=== PATIENT | female | born 1940 | race Caucasian/White ===

== ENCOUNTER 2018-10-13 09:00 | Day surgery (SDC) | payer OTHER, MEDICARE ==
[2018-10-12 10:35] VITALS: BMI 18.3
[2018-10-13 11:25] VITALS: TEMP 97.8
[2018-10-13 12:33] VITALS: BP 156/59; PULSE 61
--- NOTE | 2018-10-14 12:34 | PATH ---
Surgical Pathology Report Patient Name: MOODY LIZ [facility]. Rec. #: [id number] /Age/Gender: 1940 (Age: 78) / F Account: [id number] Location: [facility]-ENDOSCOPY Taken: 10/13/2018 Received: 10/13/2018 Reported: 10/14/2018 Physicians: Mansoor Tolentino M.D. Specimen(s) Received A: SECOND PORTION DUODENUM AND BULB B: ANTRUM C: ANTRAL ULCER D: GE JUNCTION Clinical History Iron deficiency anemia Postoperative diagnosis: Hiatal hernia, atrophic gastritis, gastric ulcers, hemorrhoids, diverticulosis Final Diagnosis A. DUODENUM, SECOND PORTION AND BULB, BIOPSY: DUODENAL MUCOSA WITHOUT SIGNIFICANT PATHOLOGIC FINDINGS. B. STOMACH, ANTRUM, BIOPSY: GASTRIC ANTRAL MUCOSA WITH SEVERE CHRONIC ACTIVE GASTRITIS. IMMUNOHISTOCHEMICAL STAIN FOR H. PYLORI IS POSITIVE (MANY). C. STOMACH, ANTRAL ULCER, BIOPSY: GASTRIC ANTRAL MUCOSA WITH SEVERE CHRONIC ACTIVE GASTRITIS AND ASSOCIATED ULCERATION. IMMUNOHISTOCHEMICAL STAIN FOR H. PYLORI IS POSITIVE (MANY). D. GE JUNCTION, BIOPSY: SQUAMOCOLUMNAR MUCOSA WITH MILD ACUTE AND CHRONIC INFLAMMATION AND CHANGES OF MILD REFLUX ESOPHAGITIS. NO INTESTINAL METAPLASIA OR DYSPLASIA IDENTIFIED. Electronically Signed Madonna Moeller M.D. Gross Description A. Received in formalin, labeled "second portion and bulb of duodenum" are 5 nicolas, irregular portions of soft tissue ranging from 0.3-0.4 cm. in greatest dimension. The specimens are submitted in toto in one cassette. B. Received in formalin, labeled "antrum biopsy" are 5 nicolas, irregular portions of soft tissue ranging from 0.2-0.4 cm. in greatest dimension. The specimens are submitted in toto in one cassette. C. Received in formalin, labeled "antral ulcer biopsy" is a nicolas, irregular portion of soft tissue measuring 0.4 cm. in greatest dimension. The specimen is submitted in toto in one cassette. D. Received in formalin, labeled "GE junction biopsy" are 2 nicolas, irregular portions of soft tissue measuring 0.1 and 0.3 cm. in greatest dimension. The specimens are submitted in toto in one cassette. DL/10/13/2018 saudi10/13/2018
== END 2018-10-13 12:35 | disposition home or self-care (01) ==
LOC: JASU-ENDO 09:00
PROVIDERS: ATTEND Internal Medicine Gastroenterology
PROC: 0DB68ZX Excision of Stomach, Via Natural or Artificial Opening Endoscopic, Diagnostic (ICD-10-PCS; 2018-10-13)
PROC: 0DB48ZX Excision of Esophagogastric Junction, Via Natural or Artificial Opening Endoscopic, Diagnostic (ICD-10-PCS; 2018-10-13)
PROC: 0DB98ZX Excision of Duodenum, Via Natural or Artificial Opening Endoscopic, Diagnostic (ICD-10-PCS; principal; 2018-10-13 09:45)
DX: D50.9 Iron deficiency anemia, unspecified (principal); K29.50 Unspecified chronic gastritis without bleeding; K44.9 Diaphragmatic hernia without obstruction or gangrene; B96.81 Helicobacter pylori [H. pylori] as the cause of diseases classified elsewhere; K25.9 Gastric ulcer, unspecified as acute or chronic, without hemorrhage or perforation; K21.0 Gastro-esophageal reflux disease with esophagitis; I10 Essential (primary) hypertension; E78.5 Hyperlipidemia, unspecified; M81.0 Age-related osteoporosis without current pathological fracture; K22.70 Barrett's esophagus without dysplasia
CPT/HCPCS: 88305-TC; 88342-TC

== ENCOUNTER 2019-08-09 09:03 | Day surgery (SDC) | payer OTHER, MEDICARE ==
[2019-08-04 16:45] VITALS: BMI 20.2
[2019-08-09] MEDS ORDERED: LIDOCAINE HCL 2% 100 MG/5 ML DISP.SYRIN ONE (09:59)
[2019-08-09 10:18] VITALS: TEMP 97.6
[2019-08-09 11:16] VITALS: BP 145/76; PULSE 65
== END 2019-08-09 11:16 | disposition home or self-care (01) ==
LOC: JASU-ENDO 09:03
PROVIDERS: ATTEND Internal Medicine Gastroenterology
PROC: 06LY4CC Occlusion of Hemorrhoidal Plexus with Extraluminal Device, Percutaneous Endoscopic Approach (ICD-10-PCS; principal; 2019-08-09 10:00)
DX: K64.8 Other hemorrhoids (principal)

== ENCOUNTER 2021-08-12 08:20 | Inpatient (IN) | payer OTHER, MEDICARE ==
[2021-08-12] MEDS ORDERED: LIDOCAINE 5% TOPICAL PATCH TP ONE (08:41)
[2021-08-12] MEDS ORDERED: ACETAMINOPHEN 1000 MG/100 ML BAG IVPB ONE (08:41)
[2021-08-12] MEDS ORDERED: LIDOCAINE 5% TOPICAL PATCH ONE (09:15)
[2021-08-12] MEDS ORDERED: ACETAMINOPHEN INJECTION 100 ML IVPB ONE ×2 (09:15→18:25)
[2021-08-12 10:08] LABS: BASO % 0.6 % (0-2.0); EOS % 0.8 % (0-4.5); HEMATOCRIT 35.5 % (32.4-45.2); HEMOGLOBIN 11.8 GM/dL (10.7-15.3); LYMPH % 16.2 % (8-40); MCH 31.9 pg (25.7-33.7); MCHC 33.3 g/dl (32.0-36.0); MEAN CELL VOLUME 95.6 fl (80-96); MEAN PLT VOLUME 8.3 fl (7.5-11.1); MONO % 7.3 % (3.8-10.2); NEUT % 75.1 % (42.8-82.8); PLATELET COUNT 244 10^3/uL (134-434); RBC 3.71 M/mm3 (3.60-5.2); RDW 13.5 % (11.6-15.6); WHITE BLOOD COUNT 5.6 K/mm3 (4.0-10.0)
[2021-08-12 10:25] LABS: ALBUMIN 3.7 g/dl (3.4-5.0)
[2021-08-12] MEDS ORDERED: morphine CARPU-JECT 2 MG/1 ML DISP.SYRIN IVPUSH ONE ×2 (10:25→16:48)
[2021-08-12 10:28] LABS: CREATININE 0.5 mg/dL (0.55-1.3)
[2021-08-12 10:30] LABS: BILIRUBIN,TOTAL 1.1 mg/dL (0.2-1)
[2021-08-12 11:10] LABS: EPI CELLS 1 /uL (0-25.1); HYALINE CASTS 17 /uL (0-3.1); PH,URINE 5.5 (5.0-8.0); URINE APPEARANCE CLOUDY; URINE BACTERIA >9,000 /uL (0-1359); URINE BILIRUBIN NEGATIVE (NEGATIVE); URINE COLOR YELLOW; URINE GLUCOSE (UA) NEGATIVE (NEGATIVE); URINE KETONE 1+ (NEGATIVE); URINE LEUK ESTERASE 2+ (NEGATIVE); URINE NITRITE NEGATIVE (NEGATIVE); URINE PROTEIN 1+ (NEGATIVE); URINE RBC 7 /uL (0-23.9); URINE UROBILINOGEN 0.2 mg/dL (0.2-1.0); URINE WBC 501 /uL (0-25.8)
[2021-08-12] MEDS ORDERED: CEFTRIAXONE 1,000 MG in DEXTROSE 5%-WATER - 50 ML IVPB ONE (11:13)
[2021-08-12] MEDS ORDERED: CEFTRIAXONE 1 GM/50 ML BAG ONE (11:36)
[2021-08-12] MEDS ORDERED: PIPERACILLIN/TAZOB 4.5 GM 4.5 GM in DEXTROSE 5%-WATER 100 ML IVPB ONE (16:09)
[2021-08-12] MEDS ORDERED: PIPERACILLIN/TAZOB 4.5 GM 4.5 GM/100 ML BAG IVPB ONE (16:47)
[2021-08-12] MEDS ORDERED: SODIUM CHLORIDE 1,000 ML IV SCH (17:00)
[2021-08-12] MEDS ORDERED: ENOXAPARIN NA (PORCINE) 40 MG/0.4 ML DISP.SYRIN SQ ONE (17:24)
[2021-08-12] MEDS: ENOXAPARIN NA (PORCINE) 40 MG/0.4 ML DISP.SYRIN SQ SCH (17:30)
[2021-08-12] MEDS: ACETAMINOPHEN 1000 MG/100 ML BAG IVPB SCH ×2 (18:30→23:46)
[2021-08-12] MEDS ORDERED: LIDOCAINE PATCH REMOVAL MC ONE (22:00)
[2021-08-13] MEDS: ACETAMINOPHEN 1000 MG/100 ML BAG IVPB SCH ×3 (06:07→16:01)
[2021-08-13 08:29] LABS: BASO % 0.8 % (0-2.0); EOS % 3.3 % (0-4.5); HEMATOCRIT 32.8 % (32.4-45.2); HEMOGLOBIN 11.2 GM/dL (10.7-15.3); LYMPH % 22.3 % (8-40); MCH 32.2 pg (25.7-33.7); MEAN CELL VOLUME 94.6 fl (80-96); MEAN PLT VOLUME 8.2 fl (7.5-11.1); NEUT % 66.6 % (42.8-82.8); PLATELET COUNT 234 10^3/uL (134-434); RBC 3.47 M/mm3 (3.60-5.2); RDW 13.1 % (11.6-15.6); WHITE BLOOD COUNT 4.9 K/mm3 (4.0-10.0)
[2021-08-13 08:57] LABS: CALCIUM 8.7 mg/dL (8.5-10.1)
[2021-08-13 08:58] LABS: ALBUMIN 3.3 g/dl (3.4-5.0); BLOOD UREA NITROGEN 22.2 mg/dL (7-18)
[2021-08-13 09:01] LABS: CREATININE 0.5 mg/dL (0.55-1.3); PHOSPHOROUS 2.8 mg/dL (2.5-4.9)
[2021-08-13 09:03] LABS: BILIRUBIN,TOTAL 0.9 mg/dL (0.2-1); TOT PROT 6.3 g/dl (6.4-8.2)
[2021-08-13] MEDS ORDERED: POTASSIUM CHLORIDE TABS 20 MEQ TABLET.ER (FP) PO ONE (09:30)
[2021-08-13] MEDS ORDERED: DEXTROSE 5%-WATER - 50 ML IVPB ONE ×2 (09:32→17:09)
[2021-08-13] MEDS ORDERED: PIPERACILLIN/TAZOBACTAM 2.25 GM VIAL IVPB ONE (09:32)
[2021-08-13] MEDS: ENOXAPARIN NA (PORCINE) 40 MG/0.4 ML DISP.SYRIN SQ SCH (09:36)
[2021-08-13] MEDS: LIDOCAINE 5% TOPICAL PATCH TP SCH (09:54)
[2021-08-13] MEDS: POLYETHYLENE GLYCOL (HEALTHYLAX) 3350 17 GM PACKET PO SCH (09:55)
[2021-08-13] MEDS ORDERED: PIPERACILLIN/TAZOB 2.25 GM 2.25 GM in DEXTROSE 5%-WATER - 50 ML IVPB ONE (10:00)
[2021-08-13] MEDS: PHENAZOPYRIDINE HCL 100 MG TABLET (FP) PO SCH ×2 (13:29→17:30)
[2021-08-13] MEDS ORDERED: traMADol HCL 50 MG TABLET PO PRN (16:37)
[2021-08-13] MEDS ORDERED: PIPERACILLIN/TAZOBACTAM 3.375 GM VIAL IVPB ONE (17:09)
[2021-08-13] MEDS: PIPERACILLIN/TAZOB 3.375 GM 3.375 GM in DEXTROSE 5%-WATER - 50 ML IVPB SCH (17:23)
[2021-08-13] MEDS: AMINO ACIDS/PROTEIN HYDROLYS 30 ML LIQUID.PKT PO SCH (17:23)
[2021-08-13] MEDS: LIDOCAINE PATCH REMOVAL MC SCH (22:10)
[2021-08-14] MEDS ORDERED: DEXTROSE 5%-WATER - 50 ML IVPB ONE ×2 (01:53→09:05)
[2021-08-14] MEDS ORDERED: PIPERACILLIN/TAZOBACTAM 3.375 GM VIAL IVPB ONE ×2 (01:53→09:05)
[2021-08-14] MEDS: PIPERACILLIN/TAZOB 3.375 GM 3.375 GM in DEXTROSE 5%-WATER - 50 ML IVPB SCH ×2 (02:35→09:13)
[2021-08-14 09:12] LABS: BASO % 0.6 % (0-2.0); EOS % 1.9 % (0-4.5); HEMATOCRIT 34.5 % (32.4-45.2); HEMOGLOBIN 11.7 GM/dL (10.7-15.3); LYMPH % 17.7 % (8-40); MCH 31.7 pg (25.7-33.7); MCHC 33.8 g/dl (32.0-36.0); MEAN CELL VOLUME 93.7 fl (80-96); MEAN PLT VOLUME 7.8 fl (7.5-11.1); MONO % 7.3 % (3.8-10.2); NEUT % 72.5 % (42.8-82.8); PLATELET COUNT 274 10^3/uL (134-434); RBC 3.69 M/mm3 (3.60-5.2); RDW 13.3 % (11.6-15.6); WHITE BLOOD COUNT 5.3 K/mm3 (4.0-10.0)
[2021-08-14] MEDS: LIDOCAINE 5% TOPICAL PATCH TP SCH (09:13)
[2021-08-14] MEDS: POLYETHYLENE GLYCOL (HEALTHYLAX) 3350 17 GM PACKET PO SCH (09:13)
[2021-08-14] MEDS: AMINO ACIDS/PROTEIN HYDROLYS 30 ML LIQUID.PKT PO SCH ×2 (09:13→18:10)
[2021-08-14] MEDS: LISINOPRIL 10 MG TABLET PO SCH (09:14)
[2021-08-14] MEDS: metoPROLOL SUCCINATE 25 MG TAB.SR.24H (FP) PO SCH (09:14)
[2021-08-14] MEDS: ENOXAPARIN NA (PORCINE) 40 MG/0.4 ML DISP.SYRIN SQ SCH (09:14)
[2021-08-14] MEDS: PHENAZOPYRIDINE HCL 100 MG TABLET (FP) PO SCH ×3 (09:14→18:11)
[2021-08-14 09:35] LABS: ALBUMIN 3.4 g/dl (3.4-5.0); BLOOD UREA NITROGEN 23.3 mg/dL (7-18); CALCIUM 9.1 mg/dL (8.5-10.1); MAGNESIUM 2.1 mg/dL (1.8-2.4)
[2021-08-14 09:38] LABS: CREATININE 0.5 mg/dL (0.55-1.3)
[2021-08-14 09:40] LABS: BILIRUBIN,TOTAL 1.1 mg/dL (0.2-1); TOT PROT 6.7 g/dl (6.4-8.2)
[2021-08-14] MEDS: ALPRAZolam 1 MG TABLET PO PRN (16:09)
[2021-08-14 16:10] VITALS: BMI 15.7
[2021-08-14] MEDS ORDERED: MEROPENEM 1 GM VIAL (RESTRICTED TO ID) IVPB ONE (17:50)
[2021-08-14] MEDS ORDERED: DEXTROSE 5%-WATER 100 ML IVPB ONE (17:51)
[2021-08-14] MEDS: MEROPENEM 1 GM in DEXTROSE 5%-WATER 100 ML IVPB SCH (18:10)
[2021-08-14] MEDS: traMADol HCL 50 MG TABLET PO PRN (18:11)
[2021-08-14] MEDS: ACETAMINOPHEN 1000 MG/100 ML BAG IVPB SCH ×2 (18:11→23:40)
[2021-08-14] MEDS: LIDOCAINE PATCH REMOVAL MC SCH (22:59)
[2021-08-15] MEDS ORDERED: MEROPENEM 1 GM VIAL (RESTRICTED TO ID) IVPB ONE ×3 (01:29→15:52)
[2021-08-15] MEDS ORDERED: DEXTROSE 5%-WATER 100 ML IVPB ONE ×3 (01:29→15:52)
[2021-08-15] MEDS: MEROPENEM 1 GM in DEXTROSE 5%-WATER 100 ML IVPB SCH ×3 (02:48→17:52)
[2021-08-15] MEDS: ACETAMINOPHEN 1000 MG/100 ML BAG IVPB SCH ×3 (06:12→17:09)
[2021-08-15 08:38] LABS: BASO % 0.9 % (0-2.0); EOS % 3.7 % (0-4.5); HEMATOCRIT 34.6 % (32.4-45.2); HEMOGLOBIN 11.6 GM/dL (10.7-15.3); LYMPH % 24.8 % (8-40); MCH 31.9 pg (25.7-33.7); MCHC 33.7 g/dl (32.0-36.0); MEAN CELL VOLUME 94.7 fl (80-96); MEAN PLT VOLUME 7.9 fl (7.5-11.1); MONO % 9.9 % (3.8-10.2); NEUT % 60.7 % (42.8-82.8); PLATELET COUNT 265 10^3/uL (134-434); RBC 3.65 M/mm3 (3.60-5.2); RDW 13.1 % (11.6-15.6); WHITE BLOOD COUNT 4.5 K/mm3 (4.0-10.0)
[2021-08-15 08:54] LABS: CALCIUM 8.8 mg/dL (8.5-10.1)
[2021-08-15 08:55] LABS: ALBUMIN 3.1 g/dl (3.4-5.0); BLOOD UREA NITROGEN 17.8 mg/dL (7-18); MAGNESIUM 2.1 mg/dL (1.8-2.4)
[2021-08-15 08:58] LABS: CREATININE 0.5 mg/dL (0.55-1.3)
[2021-08-15 08:59] LABS: BILIRUBIN,TOTAL 0.8 mg/dL (0.2-1)
[2021-08-15 09:00] LABS: TOT PROT 6.5 g/dl (6.4-8.2)
[2021-08-15] MEDS: traMADol HCL 50 MG TABLET PO PRN ×2 (09:02→15:55)
[2021-08-15] MEDS: AMINO ACIDS/PROTEIN HYDROLYS 30 ML LIQUID.PKT PO SCH ×2 (09:02→16:34)
[2021-08-15] MEDS: ENOXAPARIN NA (PORCINE) 40 MG/0.4 ML DISP.SYRIN SQ SCH (09:29)
[2021-08-15] MEDS: POLYETHYLENE GLYCOL (HEALTHYLAX) 3350 17 GM PACKET PO SCH (09:29)
[2021-08-15] MEDS: LISINOPRIL 10 MG TABLET PO SCH (09:30)
[2021-08-15] MEDS: PHENAZOPYRIDINE HCL 100 MG TABLET (FP) PO SCH ×3 (09:30→17:52)
[2021-08-15] MEDS: MULTIVITAMINS (DAILY MVI) TABLET (FP) PO SCH (09:30)
[2021-08-15] MEDS: metoPROLOL SUCCINATE 25 MG TAB.SR.24H (FP) PO SCH (09:30)
[2021-08-15] MEDS: LIDOCAINE 5% TOPICAL PATCH TP SCH (09:33)
[2021-08-15] MEDS: LIDOCAINE PATCH REMOVAL MC SCH (21:06)
[2021-08-16] MEDS ORDERED: MEROPENEM 1 GM VIAL (RESTRICTED TO ID) IVPB ONE ×2 (00:38→09:17)
[2021-08-16] MEDS ORDERED: DEXTROSE 5%-WATER 100 ML IVPB ONE ×2 (00:38→09:17)
[2021-08-16] MEDS: ACETAMINOPHEN 1000 MG/100 ML BAG IVPB SCH (00:41)
[2021-08-16] MEDS: MEROPENEM 1 GM in DEXTROSE 5%-WATER 100 ML IVPB SCH ×2 (01:19→09:23)
[2021-08-16] MEDS: traMADol HCL 50 MG TABLET PO PRN ×3 (05:15→18:04)
[2021-08-16] MEDS: ALPRAZolam 1 MG TABLET PO PRN (08:37)
[2021-08-16] MEDS: AMINO ACIDS/PROTEIN HYDROLYS 30 ML LIQUID.PKT PO SCH ×2 (08:38→16:37)
[2021-08-16 08:55] LABS: BASO % 0.4 % (0-2.0); EOS % 2.2 % (0-4.5); HEMATOCRIT 37.7 % (32.4-45.2); HEMOGLOBIN 12.6 GM/dL (10.7-15.3); LYMPH % 14.6 % (8-40); MCH 31.5 pg (25.7-33.7); MCHC 33.3 g/dl (32.0-36.0); MEAN CELL VOLUME 94.8 fl (80-96); MONO % 6.7 % (3.8-10.2); NEUT % 76.1 % (42.8-82.8); PLATELET COUNT 312 10^3/uL (134-434); RBC 3.98 M/mm3 (3.60-5.2); RDW 13.4 % (11.6-15.6); WHITE BLOOD COUNT 6.5 K/mm3 (4.0-10.0)
[2021-08-16] MEDS: LIDOCAINE 5% TOPICAL PATCH TP SCH (09:23)
[2021-08-16] MEDS: MULTIVITAMINS (DAILY MVI) TABLET (FP) PO SCH (09:23)
[2021-08-16] MEDS: metoPROLOL SUCCINATE 25 MG TAB.SR.24H (FP) PO SCH (09:23)
[2021-08-16] MEDS: LISINOPRIL 10 MG TABLET PO SCH (09:23)
[2021-08-16] MEDS: PHENAZOPYRIDINE HCL 100 MG TABLET (FP) PO SCH ×3 (09:23→17:42)
[2021-08-16] MEDS: ENOXAPARIN NA (PORCINE) 40 MG/0.4 ML DISP.SYRIN SQ SCH (09:23)
[2021-08-16] MEDS: POLYETHYLENE GLYCOL (HEALTHYLAX) 3350 17 GM PACKET PO SCH (09:23)
[2021-08-16 09:27] LABS: CALCIUM 9.2 mg/dL (8.5-10.1)
[2021-08-16 09:28] LABS: ALBUMIN 3.5 g/dl (3.4-5.0); BLOOD UREA NITROGEN 17.7 mg/dL (7-18); CREATININE 0.5 mg/dL (0.55-1.3); MAGNESIUM 2.4 mg/dL (1.8-2.4)
[2021-08-16 09:29] LABS: BILIRUBIN,TOTAL 0.8 mg/dL (0.2-1); TOT PROT 6.7 g/dl (6.4-8.2)
[2021-08-16] MEDS ORDERED: ACETAMINOPHEN 1000 MG/100 ML BAG IVPB ONE ×2 (12:45→15:00)
[2021-08-16] MEDS ORDERED: SODIUM CHLORIDE 50 ML IVPB ONE (13:37)
[2021-08-16] MEDS ORDERED: ERTAPENEM SODIUM 1 GM VIAL ONE (13:37)
[2021-08-16] MEDS ORDERED: ERTAPENEM SODIUM 1 GM in SODIUM CHLORIDE 50 ML IVPB SCH (14:00)
[2021-08-16 22:05] VITALS: BP 139/73; PULSE 93; TEMP 98.4
[2021-08-16] MEDS: LIDOCAINE PATCH REMOVAL MC SCH (22:09)
[2021-08-17] MEDS ORDERED: TAMSULOSIN HCL 0.4 MG CAP PO SCH (08:30)
== END 2021-08-16 22:30 | DRG 690 ==
LOC: JER 08:20 → JERBED 15:45 → J7W 22:16
PROVIDERS: ADMIT Internal Medicine; ATTEND Nurse Practitioner Acute Care
PROC: 02HV33Z Insertion of Infusion Device into Superior Vena Cava, Percutaneous Approach (ICD-10-PCS; principal; 2021-08-16)
PROC: B548ZZA Ultrasonography of Superior Vena Cava, Guidance (ICD-10-PCS; 2021-08-16)
DX: N39.0 Urinary tract infection, site not specified (principal); S32.2XXA Fracture of coccyx, initial encounter for closed fracture; E46 Unspecified protein-calorie malnutrition; Z68.1 Body mass index [BMI] 19.9 or less, adult; Z16.12 Extended spectrum beta lactamase (ESBL) resistance; I10 Essential (primary) hypertension; B96.20 Unspecified Escherichia coli [E. coli] as the cause of diseases classified elsewhere; R33.8 Other retention of urine; W01.0XXA Fall on same level from slipping, tripping and stumbling without subsequent striking against object, initial encounter; Y93.89 Activity, other specified; Y92.89 Other specified places as the place of occurrence of the external cause; Y99.8 Other external cause status
CPT/HCPCS: 36415; 36569; 72128-TC; 72170-TC-FY; 72220-TC-FY; 73502-TC-LT-FY; 74177-TC; 80053; 81003; 83735; 84100; 85025; 87086; 87186; 93005; 93010; 97116-GP; 97162-GP; 99285-25; C9803-CS; Q9967; U0003; U0005